=== PATIENT | male | born 1980 | race Caucasian/White ===

== ENCOUNTER → 2018-07-14 | Outpatient (CLI) | payer OTHER ==
[~2018-07-14] MED LIST: CYCLOBENZAPRINE10 MG PO; MEDROL DOSEPAK4 MG PO; NAPROSYN500 MG PO; PREDNISONE50 MG PO
== END | disposition home or self-care (01) ==
LOC: RESCLI 01:55
DX: M54.10 Radiculopathy, site unspecified (principal); M25.512 Pain in left shoulder; F12.90 Cannabis use, unspecified, uncomplicated; Z76.89 Persons encountering health services in other specified circumstances; Z79.899 Other long term (current) drug therapy; Z88.8 Allergy status to other drugs, medicaments and biological substances

== ENCOUNTER → 2018-07-21 | Outpatient (CLI) | payer OTHER | END | disposition home or self-care (01) | LOC: RESCLI 00:41 | DX: M54.10 Radiculopathy, site unspecified (principal); F12.90 Cannabis use, unspecified, uncomplicated; M25.512 Pain in left shoulder; Z88.8 Allergy status to other drugs, medicaments and biological substances ==